=== PATIENT | female | born 1975 | race Caucasian/White ===

== ENCOUNTER 2016-06-06 07:14 | Day surgery (SDC) | payer MEDICAID, OTHER ==
[2016-06-05 11:28] VITALS: BMI 28.4
[~2016-06-06] VITALS: Ht 162.6 cm; Wt 76.0 kg
[2016-06-06] VITALS (10 sets, daily range): BP systolic 102–116; BP diastolic 57–71; PULSE 62–78; RESP 13–20; Ht 162.6 cm; Wt 76.0 kg
[~2016-06-06 07:14] MED LIST: LIDOCAINE 2% (SDV) 5 ML INJ ONE; PROPOFOL 200 MG INJ ONE
--- NOTE | 2016-06-06 09:01 | HPN ---
Date/Time of Note Date/Time of Note DATE: 06/06/16 TIME: 09:01 Interval H&P Admission Note Pt. seen H&P reviewed: No system changes BENY GARCIA MD Jun 06, 2016 09:01
[2016-06-06] MEDS ORDERED: FENTAnyl 50 MCG/ML VIAL ONE (09:21)
[2016-06-06] MEDS ORDERED: ONDANSETRON 4 MG INJ ONE (09:56)
[2016-06-06] MEDS ORDERED: FENTAnyl 50 MCG/ML VIAL IV PRN (10:00)
[2016-06-06] MEDS ORDERED: METOCLOPRAMIDE 10 MG INJ IV PRN (10:00)
[2016-06-06] MEDS ORDERED: MEPERIDINE 25 MG INJ IV PRN (10:00)
[2016-06-06] MEDS ORDERED: ONDANSETRON 4 MG INJ IV PRN (10:00)
[2016-06-06] MEDS ORDERED: HYDROmorphONE (0.2 MG/ML) 10ML SYG IV PRN ×3 (10:00)
[2016-06-06] MEDS ORDERED: DIPHENHYDRAMINE 50 MG INJ IV PRN (10:00)
--- NOTE | 2016-06-06 10:15 | PD.PPDC ---
SCAFFOLDING HELPER Discharge Instruction Diagnosis Final Diagnosis: menometrorrhagia uterine fibroid Condition Patient Condition: Stable Diet Diet: Resume Regular Diet Activity/Restrictions Activity: May Shower Restrictions: No Sexual Activity Nothing in the Vagina No [place] No Tampons, douche Follow-up Follow-up with Physician: 2 Return to clinic for SET BUILDER Instructions: Fever greater than 101 Chills Worsening abdominal pain Excessive Vaginal Bleeding More than 2 pads per hour Unable to tolerate diet BENY GARCIA MD Jun 06, 2016 10:15
[2016-06-06] MEDS ORDERED: PROPOFOL 200 ML ONE (10:34)
--- NOTE | 2016-06-06 10:53 | OPR ---
DATE OF OPERATION: 06/06/2016 PREOPERATIVE DIAGNOSIS: Menometrorrhagia. POSTOPERATIVE DIAGNOSIS: Menometrorrhagia, uterine fibroid. ANESTHESIA: General. ANESTHESIOLOGIST: Salazar Arreaga MD SURGEON: Maya Lemus MD ESTIMATED BLOOD LOSS: Negligible. PROCEDURE: Under the proper induction of general anesthesia, the patient was placed in the dorsal l ithotomy position. Perineal area and vagina wall was prepped and draped in usual aseptic manner. O n inspection, the external genitalia revealed first degree rectocele with loose perineum and bimanua l examination uterus felt to be approximately 8 weeks of gestation, firm in consistency. There was no palpable adnexal pathology. Weighted speculum was introduced into the vagina. Cervix identified , which was grasped with a single-tooth tenaculum appeared to be parous and no lesion. Endocervical curettage was performed with obtaining scanty tissue and the cavity was sounded which was 10 cm in depth, was dilated gradually enough to submit the small sized curet which was inserted. The entire uterine cavity was curetted with obtaining of moderate amount of tissue which was sent to pathology. Cavity was relatively small except the left lateral area questionable irregularity. Other than th at, no significant abnormal finding noted. The procedure completed. All the instruments were remov ed from the operative field. Patient withstood the procedure well and sent to recovery room in stab le condition. Dictated By: MAYA RAPP/NAY Conf#: [id number] DID#: [id number]
== END 2016-06-06 11:15 | disposition home or self-care (01) ==
LOC: SDS 07:14
PROVIDERS: ATTEND Obstetrics & Gynecology
DX: N92.1 Excessive and frequent menstruation with irregular cycle (principal); D25.9 Leiomyoma of uterus, unspecified
CPT/HCPCS: 58120; 88305; J3010; Z7512; Z7610; J2405